=== PATIENT | male | born 1965 | race Caucasian/White ===

== ENCOUNTER 2018-12-03 20:12 | Emergency (ER) | payer MEDICAID ==
[~2018-12-03] VITALS: Ht 180.3 cm; Wt 68.3 kg
[2018-12-03 20:22] VITALS: BP 129/84
== END 2018-12-03 21:11 | disposition home or self-care (01) ==
LOC: ED 21:05
DX: F32.0 Major depressive disorder, single episode, mild (principal); Z72.9 Problem related to lifestyle, unspecified
CPT/HCPCS: 99284